=== PATIENT | male | born 1990 ===

== ENCOUNTER 2021-03-19 09:50 | Emergency (ER) | payer BC ==
[~2021-03-19] VITALS: Ht 167 cm; Wt 118.0 kg
--- NOTE | 2021-03-19 10:22 | ED Upper Extremity ---
General Chief Complaint: Laceration Stated Complaint: L HAND LAC Nursing Triage Note: AMB WITH LACERATION TO L HAND CUT ON BOX KNIFE. Source: patient Exam Limitations: no limitations History of Present Illness Date Seen by Provider: Mar 19, 2021 Time Seen by Provider: 10:09 Initial Comments Patient to ER by private conveyance from work at [employer] where he was using a box turner and sliced the left hyperthenar eminence of his hand on the volar surface. He is not on blood thinners nor does he have any significant medical history. He is not diabetic. He has not had a tetanus vaccine in the last 5 years Allergies and Home Medications Allergies Coded Allergies: No Known Drug Allergies (Unverified , 03/19/21) Patient Home Medication List Home Medication List Reviewed: Yes Review of Systems Constitutional: No chills, No diaphoresis EENTM: No ear discharge, No ear pain Respiratory: No cough, No phlegm Cardiovascular: No edema, No syncope Gastrointestinal: No abdominal pain, No nausea, No vomiting Skin: see HPI All Other Systems Reviewed Negative Unless Noted: Yes Past [id number] Hx Patient Social History Tobacco Use?: Yes Tobacco type used: Cigarettes Smoking Status: Current Everyday Smoker Substance use?: No Alcohol Use?: Yes Alcohol Frequency: Once in a while Pt feels they are or have been: No Immunizations Up To Date Influenza Vaccine Up-to-Date: No; Not Current First/Initial COVID19 Vaccinat: DECEMBER Second COVID19 Vaccination Sherif: DECEMBER Physical Exam Vital Signs Vital Signs - First Documented 03/19/21 10:00 Pulse 88 Resp 18 B/P (MAP) 151/95 (113) Pulse Ox 98 Capillary Refill : Less Than 3 Seconds Height, Weight, BMI Height: '" Weight: lbs. oz. kg; 42.00 BMI Method: General Appearance: WD/WN, no apparent distress HEENT: PERRL/EOMI, pharynx normal Cardiovascular: normal peripheral pulses, regular rate, rhythm Respiratory: no respiratory distress, no accessory muscle use Hand: normal ROM, laceration (2 cm linear laceration showing some subcutaneous tissue with no foreign body over the hypothenar eminence of the left hand volar surface) Neurologic/Tendon: normal sensation, normal motor functions, normal tendon functions, responds to pain, no evidence tendon injury Procedures/Interventions Wound Location: Upper Extremities Other Wound Location Left hand hyperthenar eminence Wound Length (cm): 2 Wound's Depth, Shape: linear, sub Q Wound Explored: no foreign body removed Irrigated w/ Saline (ccs): 100 Betadine Prep?: Yes (Chlorhexidine and sterile saline) Anesthesia: 1% Lidocaine Volume Anesthetic (ccs): 1 Wound Debrided: minimal Suture: Prolene Suture Size: 4-0 Number of Sutures: 2 Layer Closure?: 1 Number Deep Layer Sutures: 0 Sterile Dressing Applied?: Yes Progress/Results/Core Measures Results/Orders My Orders Orders - BA VALLES Dipht,Wesley(Acell),Tet Adult (Boostrix (03/19/21 10:30) Lidocaine 1% Inj 20 Ml (Xylocaine 1% Inj (03/19/21 10:30) Vital Signs/I&O 03/19/21 10:00 Pulse 88 Resp 18 B/P (MAP) 151/95 (113) Pulse Ox 98 Blood Pressure Mean: 113 Departure Impression Primary Impression: Laceration of left hand without foreign body Qualified Codes: S61.412A - Laceration without foreign body of left hand, initial encounter Disposition: HOME, SELF-CARE Condition: Stable Departure-Patient Inst. Decision time for Depature: 11:01 Referrals: NO,LOCAL PHYSICIAN (PCP/Family) Primary Care Physician Patient Instructions: Laceration Repair With Stitches (DC) Add. Discharge Instructions: Keep the wound clean with regular soap and water. You may apply a thin layer of Vaseline or triple antibiotic ointment over the sutures to keep them from sticking to the dressing. Change the dressing at least daily or more frequently if it becomes soiled. If you are having increased pain and swelling then elevate your hand above the level of your heart, stop using it and increase compression as well as ice 20 minutes every 2 hours as necessary for the first 2 days. Tylenol and ibuprofen as necessary for pain. Cephalexin 3 times a day for the next 3 days to prevent infection. You may return to the ER or your doctor's office in 10 to 14 days to have the sutures removed. Return to the doctor sooner if you are having increased redness going up your arm, fever or other evidence of infection such as purulent drainage from the wound. All discharge instructions reviewed with patient and/or family. Voiced understanding. Scripts Cephalexin (Cephalexin) 500 Mg Tablet 500 MG PO TID for 3 Days, #9 TAB 0 Refills Prov: BA VALLES 03/19/21 Work/School Note: Work Release Form Date Seen in the Emergency Department: Mar 19, 2021 Return to Work: Mar 19, 2021 Restrictions: No Restrictions BA VALLES Mar 19, 2021 10:22
[2021-03-19] MEDS ORDERED: TETANUS,DIPTH,PERTUSS P/F (BOOSTRIX) 0.5 ML VIAL IM ONE (10:30)
[2021-03-19] MEDS ORDERED: LIDOCAINE 1% INJ 20 ML 20 ML VIAL INJ ONE (10:30)
[2021-03-19] MEDS ORDERED: CEPH500T PO (11:03)
[2021-03-19 11:24] VITALS: BP 151/95
== END 2021-03-19 11:23 | disposition home or self-care (01) ==
LOC: ER 09:53
DX: S61.412A Laceration without foreign body of left hand, initial encounter (principal); F17.210 Nicotine dependence, cigarettes, uncomplicated; Z23 Encounter for immunization; W27.5XXA Contact with paper-cutter, initial encounter; Y99.0 Civilian activity done for income or pay
CPT/HCPCS: 12001; 90715